=== PATIENT | male | born 1970 | race Caucasian/White ===

== ENCOUNTER 2016-07-04 06:36 | Day surgery (SDC) | payer MEDICARE, MEDICAID ==
[~2016-07-04 06:36] MED LIST: LACTATED RINGERS 1,000 ML IV SCH
[2016-07-04] MEDS ORDERED: LACTATED RINGERS 1,000 ML ONE (06:41)
[2016-07-04] MEDS ORDERED: IV START KIT ONE (06:41)
[2016-07-04] MEDS ORDERED: PROPOFOL 40 ML IV ONE (07:56)
--- NOTE | 2016-07-06 13:48 | SURGPATH ---
[facility] [address] [place] [id number] Patient Name: JESSICA AMATO MR#: [id number] : 1970 Gender: M Specimen #: [id number] Collected: 07/04/2016 Received: 07/05/2016 Reported: 07/06/2016 Submitting Phys: MAURICE MEYER Copy To Phys: [facility] DYLON IBRAHIM Clinical History / Pre-Operative Diagnosis: Heme occult + stool Specimen Source / Surgical Procedure Performed: #1 mid transverse colon polyp, #2 ileocecal valve polyp Interpretation: 1. MID TRANSVERSE COLON POLYP: - TUBULAR ADENOMA. 2. ILEOCECAL VALVE POLYP: - TUBULAR ADENOMA. Electronically Signed Out Nohelia Madison M.D. Gross Description: 1. The specimen is received in formalin labeled with the patient's name and "mid transverse colon polyp". The specimen consists of three fragments of green soft tissue, 0.2-0.8 cm in greatest dimension. Submitted in toto in one cassette. 2. The specimen is received in formalin labeled with the patient's name and "ileocecal valve polyp". The specimen consists of a 0.4 x 0.2 x 0.2 cm fragment of green soft tissue. Submitted in toto in one cassette. LILLIAN Gill Microscopic Description: 1. Sections of the mid transverse colon polyp show adenomatous mucosal changes without evidence of high-grade dysplasia or invasive carcinoma. 2. Sections of the ileocecal valve polyp again show adenomatous mucosal changes without evidence of high-grade dysplasia or invasive carcinoma. 1: 74805 2: 98863 D12.3 D12.0
== END 2016-07-04 08:01 | disposition home or self-care (01) ==
LOC: SDC 06:36
PROVIDERS: ATTEND Internal Medicine Gastroenterology
PROC: 0DBL8ZX Excision of Transverse Colon, Via Natural or Artificial Opening Endoscopic, Diagnostic (ICD-10-PCS; principal; 2016-07-04)
PROC: 0DBC8ZX Excision of Ileocecal Valve, Via Natural or Artificial Opening Endoscopic, Diagnostic (ICD-10-PCS; 2016-07-04)
DX: D12.3 Benign neoplasm of transverse colon (principal); D12.0 Benign neoplasm of cecum; F17.210 Nicotine dependence, cigarettes, uncomplicated; M79.1 Myalgia; Z79.891 Long term (current) use of opiate analgesic
CPT/HCPCS: 45385; J7120